=== PATIENT | female | born 1935 | race Caucasian/White ===

== ENCOUNTER → 2017-02-06 | Outpatient (CLI) | payer MEDICARE ==
[~2017-02-06] MED LIST: AMOXIL500 MG PO; ASPIR 8181 MG PO; ATIVAN1 MG PO; CELEXA10 MG PO; CELEXA20 MG PO; CIPRO500 MG; CRESTOR20 MG PO; CRESTOR5 MG PO; FLEXERIL10 MG PO; IBU800 MG PO; LEVAQUIN750 M1 PO; LEVOTHYROXINE0.05 MG PO; MEDROL DOSEPAK4 MG PO; NEXIUM40 MG PO; OXYGEN NAS; PERCOCET 325 MG1 TA2 PO; PERCOCET 325 MG1 TAB PO; PREDNISONE10 MG PO; PREVACID15 MG PO; PROAIR HFA8.5 GM INH; PROTONIX40 MG PO; SPIRIVA -- 3018 MCG INH; SPIRIVA18 MCG PO; Synthroid,Levo50 MCG PO; VASOTEC10 MG PO; VICODIN ES 7501 TAB PO; ZOCOR80 MG PO; ZOFRAN ODT4 MG SL; Zofran4 MG PO; [UNRECOGNIZED DRUG - OTHER] PO
[2017-02-07 14:07] LABS: ACID FAST SPEC PROCESSING Concentration (.)
== END | disposition home or self-care (01) ==
LOC: RAD 15:39
PROVIDERS: Internal Medicine Critical Care Medicine
DX: R05 Cough (principal)

== ENCOUNTER 2017-02-21 11:12 | Inpatient (IN) | payer MEDICARE ==
[~2017-02-21] VITALS: Ht 162.5 cm; Wt 63.1 kg
--- NOTE | ~2017-02-21 | WRIGHTHP ---
[place], [place] PATIENT HISTORY AND PHYSICAL EXAM NAME: JAMES ANDRADE UNIT #: [id number] ROOM: [place] [address] DOCTOR: RUPAL LAMBERT MD BIRTHDATE: [birth year] DOS: 02/21/2017 HISTORY OF PRESENT ILLNESS: The patient is a 81-year-old female with a past medical history of: 1. Right lower lung mass. 2. COPD. 3. Severe protein calorie malnutrition. 4. Mixed hyperlipidemia. 5. Generalized anxiety disorder. 6. Gastroesophageal reflux disease and esophagitis. 7. Hypothyroidism. 8. Major depression, recurrent. 9. Benign essential hypertension. 10. Previous history of nicotine smoke dependence. The patient presented to the Emergency Department and was seen for complaints of abdominal pains and a CAT scan of the abdomen was performed and she was suspected to have severe constipation and recommended for admission and further management to the fifth floor. After admission, the patient appears to be in mild to moderate distress. She has abdominal distention and complains of pain in her abdomen and has sinus tachycardia with the heart rate going up to 140 beats per minute with temperature of 100.5 degrees Fahrenheit. The patient is being transferred to ICU for close monitoring for sepsis, possibly of abdominal origin or patient can even have pneumonia. She has a lung mass. The patient is unable to provide a good history, but she is following basic commands. REVIEW OF SYSTEMS: LUNGS: No increasing shortness of breath. GASTROINTESTINAL: Complains of abdominal pains. CARDIOVASCULAR SYSTEM: No complaint of chest pains, but she is tachycardic. FAMILY HISTORY: Noncontributory. HOME MEDICATIONS: The patient was taking escitalopram, Protonix, Breo inhaler at home. ALLERGIES: KNOWN ALLERGIES TO MEPERIDINE. SOCIAL HISTORY: Denies smoking cigarettes with previous history of nicotine abuse. Denies any alcohol or drug abuse. PHYSICAL EXAMINATION: GENERAL: Awake, alert, follows basic commands, unable to provide much history, appears to be quite uncomfortable with abdominal pains. CARDIOVASCULAR SYSTEM: Heart rate is regular in rate and rhythm and tachycardic, heart rate around 130 beats per minute. ABDOMEN: Distended, generally tender. No rigidity, guarding or rebound tenderness. No obvious organomegaly. Bowel sounds are increased. EXTREMITIES: Without significant cyanosis or edema. CENTRAL NERVOUS SYSTEM: The patient unable to provide much history. She is [place], [place] PATIENT HISTORY AND PHYSICAL EXAM NAME: JAMES ANDRADE UNIT #: [id number] ROOM: [place] [address] DOCTOR: RUPAL LAMBERT MD BIRTHDATE: [birth year] able to move all extremities. LABORATORY DATA: CBC is normal except for left shift with 87% neutrophils on differential count. Troponin I level was normal. Lactic acid level elevated to 5.2, then 4.4 and now at 2.9. CT of the abdomen and pelvis could not rule out a mass, but it showed increased fecal matter and distention of the right colon, distended fluid filled esophagus. IMPRESSION: The patient with history of lung mass again showing up on chest x-ray in the right lower lobe, concern is about malignancy and also pneumonia. The patient is being started on antibiotics and Dr. Nunez, her hot tar roofer has been consulted on an urgent basis and the patient is being moved to ICU. 1. Sepsis with tachycardia and fever up to 100.5 degrees Fahrenheit with acute abdominal pains and tachycardia with heart rates going up to 140 beats per minute and elevated lactic acid level to 5.2. The patient was started on hydration with normal saline and was started on cefepime. The patient was given Rocephin in the Emergency Department. No signs of urine infection on urinalysis in the Emergency Department. 2. Possible bowel obstruction or even bowel tumor and constipation, for which I am consulting Dr. Dominguez with surgeon on an urgent basis and treat her with antibiotics. Follow her blood counts daily and serum electrolytes. The patient also had distended fluid filled esophagus. The patient is being kept n.p.o. 3. The patient will be monitored closely in the ICU and hot tar roofer, Dr. Nunez and general surgeon, Dr. Dominguez have been consulted. RUPAL LAMBERT MD CM:HISPHYS:PATIENT HISTORY AND PHYSICAL EXAMINATION 24 42 RUPAL LAMBERT MD 02/21/171942 interface
--- NOTE | ~2017-02-21 | PR ---
[place], [place] PROGRESS NOTE NAME: [facility] [id number] UNIT #: [id number] ROOM: [place] [address] DOCTOR: RUPAL LAMBERT MD BIRTHDATE: [birth year] DOS: 02/22/2017 SUBJECTIVE: The patient dropped her blood pressure early this morning in the ICU and required resuscitation, which was followed by intubation and mechanical ventilation. The patient was put on dopamine and dobutamine and continued on hydration with normal saline. The patient's blood pressures improved, but since her resuscitation, she has dilated pupils and is unresponsive. Dr. Nunez, beverage specialist and car bracer has been on consult and Dr. Dominguez, the surgeon, and mask designer, Dr. Reese and Infectious Disease specialists have been consulted. The patient is being kept on antibiotics. Rocephin was given in the Emergency Department prior to admission. Following this, patient was put on cefepime and now she is on vancomycin, Zosyn and Flagyl intravenously. She is intubated and on mechanical ventilation. PHYSICAL EXAMINATION: VITAL SIGNS: Blood pressure 84/45, going all the way up to 130 systolic over 50 diastolic, heart rate of 128 beats per minute, breathing 12 times per minute, temperature 98 degrees Fahrenheit, going up to 101.2 degrees Fahrenheit rectal. HEENT AND NECK: Reveals pupils are dilated, nonreactive to light. The patient is completely unresponsive, intubated and on mechanical ventilation. The patient has not been getting any sedation after she received Dilaudid last night. CARDIOVASCULAR SYSTEM: Heart rate is regular in rate and rhythm. S1, S2 audible. LUNGS: Clear to auscultation. ABDOMEN: Decreased bowel sounds. EXTREMITIES: Without significant cyanosis or edema. CENTRAL NERVOUS SYSTEM: The patient is completely unresponsive. Pupils are dilated and not responding to light. She was intubated and on mechanical ventilation and not sedated. LABORATORY DATA: Urine cultures are negative. BUN and creatinine 76 and 2.5, hemoglobin 10, platelets are low at 74,000, neutrophils 16%, lymphocytes 60%, white cell count of 600. IMPRESSION: 1. 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 The patient's family and her daughters have decided to keep her on comfort care now and an Ethics Committee consult is being obtained regarding end of life regulations in the [employer]. Case was discussed in great detail with family and Dr. Nunez. 2. The patient on examination is terminal and irreversible. 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 Vieira, the ER physician. 3. Neutropenic fever and sepsis, being followed by ID specialist. The patient's latest antibiotics are Zyvox and cefepime. 4. Hypothyroidism, treated with levothyroxine. 5. The patient remains in the ICU. She is being turned every 2 hours and we are using an air mattress. [place], [place] PROGRESS NOTE NAME: JAMES ANDRADE UNIT #: [id number] ROOM: [place] [address] DOCTOR: RUPAL LAMBERT MD BIRTHDATE: [birth year] 6. Severe constipation and abdominal distention. The patient has NG tube in place and on intermittent suctioning. Her bowels are not working. RUPAL LAMBERT MD CM:PNTRANS [id number] RUPAL LAMBERT MD 02/22/17 1402 interface
--- NOTE | ~2017-02-21 | CON ---
[place], [place] REPORT OF CONSULTATION NAME: JAMES ANDRADE UNIT #: [id number] ROOM: [place] [address] DOCTOR: LIYAH OSBORNE MD BIRTHDATE: [birth year] DOS: 02/22/2017 REQUESTING PHYSICIAN: Dr. Lu, which was completed on 02/22/2017. HISTORY OF PRESENT ILLNESS: A 81-year-old white female who has been known to me from the past. The patient has been known with history of COPD with chronic hypoxic respiratory failure and also diagnosed with metastatic lung cancer, nonsmall cell. The patient has been started on chemotherapy per Dr. Connors in [facility] in [place], [place]. The patient has been given the chemotherapy. The patient presented to the Emergency Room from date of 02/21/2017. The patient has been reported symptoms of excessive nausea, vomiting and emesis. The patient's symptoms have been noted gradually worsen. She was noted with severe leukopenia. The patient later on developed severe hypertension as well and noted with signs a severe septic shock. The patient has been started with vasopressors, was given IV fluid resuscitation and also noted with hypoglycemia. The patient has been currently noted on mechanical ventilator at the present time for this patient receiving 2 different vasopressors for this patient and noted with severe lactic acidosis. The patient has been noted unconscious, does not respond to the vocal commands. She has been resuscitated because of the unresponsiveness, on this hospitalization, this morning as well. The patient has been currently intubated and started on mechanical ventilator. The patient has not been noted symptoms of hemoptysis or coughing as per family members. She has been reported some symptoms of shortness of breath. REVIEW OF SYSTEMS: Review of systems could not be completed since the patient is noted intubated and mechanical ventilation. PAST MEDICAL HISTORY: 1. Noted with history of nonsmall cell lung cancer metastatic to the lymph nodes as well as in the left lower lobe, currently treated with chemotherapy. 2. History of centrilobular emphysema. 3. Uncomplicated moderate persistent bronchial asthma and acute chronic hypoxic respiratory failure. 4. Hypercholesterolemia. 5. Anxiety disorder and depression. 6. Gastroesophageal reflux. 7. Essential hypertension. PAST SURGICAL HISTORY: 1. Surgery of the urinary bladder. 2. Cholecystectomy. 3. Hysterectomy. 4. Carotid endarterectomy. 5. Fiberoptic bronchoscopy 10/[address]-guided ____ biopsy of the right lower lobe mass for this patient that was done for the patient on 12/24/2016. SOCIAL HISTORY: The patient is currently and lives at home. She has been noted with tobacco use since age of [age] years old, 1.5 packs of cigarettes per day until 2000. She has also worked in the ____ for 28 years. [place], [place] REPORT OF CONSULTATION NAME: JAMES ANDRADE UNIT #: [id number] ROOM: [place] [address] DOCTOR: LIYAH OSBORNE MD BIRTHDATE: [birth year] FAMILY HISTORY: The patient was reported as father at age 3131 years old in [place]. The mother at 69 years old, complication of heart problems. MEDICATIONS: Current administered medications noted use of norepinephrine, dopamine, citalopram, vancomycin, Levaquin, cefepime and other p.r.n. medications administration. She is also getting intravenous fluids 150 mL an hour. DRUG ALLERGIES: NOTED ALLERGY TO ____. PHYSICAL EXAMINATION: GENERAL: This is a 81-year-old white female noted unconscious with height of 5 feet 4 inches, the patient weight of 139 pounds, BMI 23.8. VITAL SIGNS: For the patient recorded temperature noted at 101.2 degrees Fahrenheit to normal temperature, respiratory rate noted at 20-29. Heart rate of 120-125 with sinus tachycardia, blood pressure ____. The patient at that time of resuscitation this morning was noted ____ and current blood pressure noted as ____. Intake for the patient recorded as 3100 mL, the output was 675 mL. Pulse oxygen saturation noted as 100% on current supplementation of oxygen. Previous noted as 76% prior to the intubation and mechanical ventilation during the code. HEENT: Noted, the patient is currently intubated, orogastric tube is in place. NECK: Supple. CARDIOVASCULAR: S1, S2 is audible. LUNGS: The patient was noted without any wheezing or crackles. Breaths are noted mildly decreased bilaterally. ABDOMEN: Soft, absent bowel sounds. EXTREMITIES: The patient showed no edema. SKIN: Overlying skin visible shows no abnormalities. MUSCULOSKELETAL: No gross deformities. CENTRAL NERVOUS: Deeply comatose status. LABORATORY DATA: CMP of patient on 02/21/2017 showed glucose 217, BUN 54, creatinine 1.55, sodium 133. Lipase was normal. CBC of the patient on 02/21/2017 was noted as normal CBC. Lactic acid 5.2, later on noted at 4.4 and 2.9 as the lowest noted yesterday afternoon. The BMP for the patient that was done this morning for this patient shows BUN 75, creatinine 2.37 with CO2 of 12. Arterial blood gas, pH of 7.07, pCO2 of 35, pO2 192 at the time of the ____. CBC this morning, WBC count 1.1, hemoglobin and hematocrit were normal. The platelet count for this patient was noted as 104,000, which was mildly decreased. The lactic acid noted as 16.0 twice. The CMP repeated again this morning after the course shows glucose of 22, BUN 76, creatinine 2.59. CO2 of 17 at that time. Urine culture showed no bacterial growth. Preliminary findings culture results were pending. The chest x-ray this morning, the patient is with intubation. The patient noted endotracheal tube were in appropriate position. Mass lesions were noted in the right mid lung for the patient with acute infiltration in the right lower lobe. A CT scan of the chest, abdomen and pelvis, which were done yesterday upon admission. Findings were reviewed and the CT scan of the chest was reviewed. CT scan of the chest [place], [place] REPORT OF CONSULTATION NAME: JAMES ANDRADE UNIT #: [id number] ROOM: [place] [address] DOCTOR: BUCK SPRINGER MD,LIYAH BIRTHDATE: [birth year] shows evidence of previously noted right lower lobe mass for this patient and previously with distention of fluid filled esophagus. ____ possibility of underlying esophageal stricture versus ____ was described. Dilatation of the cecum. The patient was also described with a large amount of stool in the colon. There was no free air described for the patient by the radiologist report. IMPRESSION: 1. The patient who has been admitted to the hospital noted with severe acute sepsis with septic shock, multiorgan system failure including acute kidney injury for the patient as well as severe hypotension and hypoglycemia. 2. Immunosuppression. The patient was also noted because the chemotherapy administration and worsened because of the sepsis as well with WBC count was noted initially 0.6. 1.1 this morning and later on noted as 0.6 and WBC count were noted normal. Acute ____ suppression patient would be also added ____ will be resulting because of the current acute sepsis. 3. Severe lactic acidosis, multifactorial including from the ____ to the body and acute sepsis was also noted. 4. Unconscious status secondary multiorgan system failure. 5. History of known metastatic nonsmall cell lung cancer as well. PLAN OF TREATMENT: Currently, the patient's condition has been noted ____. In my opinion as the family members wishing the patient to be removed from mechanical ventilator and to be kept comfortable. The daughters of this patient said explicitly that the patient has discussed the code status. The patient's advanced directive that she does not wish to be continued on the mechanical ventilation for the life support in case of terminal and irreversible status. ____ who is the primary care attending of this patient to primary care physician has determined the same. ASSESSMENT: I concurred with her assessment as well. However, the matter is since there has not been any written documentation, ____ only verbal discussion has been noted. The case will be discussed from the ethics committee with committee members as well. If agreeable the patient could be terminally removed from mechanical ventilator the patient ____ weaning to be done. If the patient does get ____ weaning for the patient. She will be started on morphine and other medication as necessary only for comfort. The patient's prognosis is noted, great at the present time. Severe hypoglycemia for this patient most likely related to acute sepsis in the management component. The patient at the end noted that patient's blood glucose has been checked for the last 2 hours noted greater than 100 after the hypoglycemia that has been already managed. The patient with suppressive therapy has been gradually reduced as improvement noted in the hypotension, patient titration has been noted in progress. Total time pulmonary critical care evaluation and management on today's assessment and management is 40 minutes. [place], [place] REPORT OF CONSULTATION NAME: JAMES ANDRADE UNIT #: [id number] ROOM: [place] [address] DOCTOR: CHINO OSBORNE MDM BIRTHDATE: [birth year] LIYAH JANE MD CM:CONSTR:REPORT OF CONSULTATION 1350 02/22/17 1656 interface
--- NOTE | ~2017-02-21 | CON ---
[place], [place] REPORT OF CONSULTATION NAME: JAMES ANDRADE UNIT #: [id number] ROOM: [place] [address] DOCTOR: KIMBER CAMPBELL,AMANDO BIRTHDATE: [birth year] DOS: 02/22/2017 At 0540 hours this morning, I was asked to evaluate this patient who had a sudden onset of respiratory arrest with an associated rapid bradycardia to asystole. She was originally admitted to the hospital one day ago for what was thought to be a partial bowel obstruction. The nurses reported that she had been tachycardic overnight maintaining a blood pressure between 90 and 100. She was given Dilaudid at 3:00 a.m. this morning and that did offer her some relief; however, the tachycardia persisted. She was receiving supplemental O2. As noted above, she rapidly declined from an apnea to a bradycardia and then no palpable pulses. When I arrived, the nurse was bagging the patient with a bag valve mask with the chin up and the patient was slightly cyanotic. Skin was warm and dry. She had acrocyanosis, but no muffling. She does have a reported history of carcinoma of the lung. No other information is available. Her skin is pale. On examination unresponsive, skin is pale. No palpable pulses and no spontaneous respirations. With hand ventilation, breath sounds bilaterally were within normal limits. No cardiac tones are heard. Cardiac massage was in progress and the central pulses at the femoral region were palpated. The abdomen was distended and somewhat firm, but there was no ecchymosis or cyanosis of the abdomen. The extremities were without edema and as noted, no pulses in the legs during the compressions. Pupils were dilated. I recommended intubation immediately and this was done without any sedated agent because the patient was unresponsive with direct laryngoscopy, the cords were visualized. There was a minimal amount of blood in the posterior hypopharynx, but no blood in the airway. The tube was passed without difficulty through the cords secured in position and cuff inflated. Equal air entry bilaterally and no air heard over the epigastrium and CO2 was positive and there was mist in the tube. Ventilation continued through the ET tube. She received multiple medications and subsequently we have a return in pulse and blood pressure. The blood pressure was improved after dopamine, but there were no spontaneous respirations. Her blood pressure was 150/80 with dopamine and the dose on the dopamine was reduced gradually from 20 to 10 and then to 5. Blood pressure was maintained at 110/68 at 5 mcg per kilogram. Chest x-ray, which was interpreted by me showed a normal bony thorax, normal mediastinum, moderate heart size, infiltrate in the right lower lobe, which may be the mass that the nurses were telling me about. Tube was in good position. 12-lead EKG, which was interpreted by me showed a sinus tachycardia with a heart rate of 128 beats per minute. There were T-wave changes in all leads, but no ST elevation and no conduction problems and no old EKG was available to me at the time of the interpretation. I did speak with Dr. uL, advised him of the patient's status; however, some concern that the patient was indeed septic and recommended 1 liter of saline wide open. Ventilator settings were assist control of 12, tidal volume 500, PEEP 5 cm and FiO2 1.0, which is 100%. Repeat blood gases will be done in 15 minutes. I also recommended a CBC, basic chemistry, lactic acid x 2. After speaking with Dr. Lu, he requested that I consult with Infectious Disease and the patient's care was transferred back to Dr. Lu. The patient's condition is critical. [place], [place] REPORT OF CONSULTATION NAME: JAMES ANDRADE UNIT #: [id number] ROOM: [place] [address] DOCTOR: AMANDO QUIROGA MD BIRTHDATE: [birth year] AMANDO QUIROGA MD CM:CONSTR:REPORT OF CONSULTATION 1817 02/23/17 0504 interface
--- NOTE | ~2017-02-21 | CON ---
[place], [place] REPORT OF CONSULTATION NAME: JAMES ANDRADE UNIT #: [id number] ROOM: [place] [address] DOCTOR: ARLINE BENOIT [facility] BIRTH[facility]: [birth year] DOS: GASTROENDOSCOPIC CONSULTATION HISTORY OF PRESENT ILLNESS: A 81-year-old patient who has presented with some episode of dysphagia and concerned about that that I have been consulted for. However, the patient known with metastatic disease and the patient with lung mass. The patient rested on the floor, the patient had to be transferred to ICU, was found to have lactic acid of greater than 16 with elevated BUN and creatinine to 54 and 1.55. The troponin was negative; however, at that time, her H and H was 14 and 45, white blood cell was 6.2. The patient became unresponsive, transferred to ICU and the family is making decision regarding DNR and care now. PAST MEDICAL HISTORY: Associated with depression, anxiety, lung CA, tachycardia, unresponsiveness, respiratory arrest at the present time. PAST SURGICAL HISTORY: Hysterectomy, cholecystectomy, carotid endarterectomy, bladder surgery. SOCIAL HISTORY: Passive smoker and nonalcohol consumer. FAMILY HISTORY: Noncontributory. ALLERGIES: TO MEPERIDINE. MEDICATIONS: Medication list has been reviewed. REVIEW OF SYSTEMS: Cannot be obtained from her due to intubation status and unresponsiveness. VITAL SIGNS: Hypotensive, intubated. HEENT: Pupils are fixed. Unresponsive. Mouth occupied with intubation device. LUNGS: Respiratory rhonchi. HEART: Tachycardic. ABDOMEN: Soft. No hepato-organomegaly. EXTREMITIES: No cyanosis, no pedal edema. NEUROLOGIC: Unresponsive. IMPRESSION: End stage lung carcinoma, respiratory arrest, intubation. Other adjunctive diagnoses as outlined in the paragraph of past medical and surgical history. Multiple family members are present at the bedside, they are making decision for terminal wean. Labs and records have been reviewed. White blood cell 0.6. Lactic acid greater than 16, platelet count 74. Records have been reviewed. I agree with terminal wean in the patient with lung carcinoma, metastasis, and end stage. Family essentially has coordinated visitation at the bedside and they are saying goodbye to her, and we are waiting for other physicians' comments regarding a terminal wean. [place], [place] REPORT OF CONSULTATION NAME: JAMES ANDRADE UNIT #: [id number] ROOM: [place] [address] DOCTOR: KAYCEE CAMPBELL,STEPHANIA BIRTHDATE: [birth year] STEPHANIA BENOIT MD CM:CONSTR:REPORT OF CONSULTATION 1335 02/22/17 1458 interface
[2017-02-21 11:22] VITALS: BP 116/70
[2017-02-21 11:51] LABS: HEMATOCRIT 45.8 % (37.0-47.0); HEMOGLOBIN 14.8 g/dl (12.0-16.0); MEAN CORPUSCULAR HGB 29.7 pg (27.0-31.0); MEAN CORPUSCULAR HGB CONC 32.3 g/dl (33.0-37.0); MEAN PLATELET VOLUME 10.8 fl (9.6-12.3); PLATELET COUNT AUTOMATED 196 10*3/uL (130-400); RED BLOOD COUNT 4.98 10*6/uL (4.10-5.10); RED CELL DISTRI WIDTH 14.3 % (0-14.5); WHITE BLOOD COUNT 6.2 10*3/uL (4.8-10.8)
[2017-02-21 12:05] LABS: ALBUMIN 3.1 gm/dl (3.1-4.5); BILIRUBIN, TOTAL 1.2 mg/dl (0.2-1.0); POTASSIUM 4.8 mmol/L (3.5-5.1); TOTAL PROTEIN 7.8 gm/dL (6.4-8.2)
[2017-02-21 12:08] LABS: EOSINOPHIL # 0.1 10*3/uL (0-0.4); EOSINOPHILS 1 % (1-4); LYMPHOCYTE # 0.5 10*3/uL (1.3-4.4); MONOCYTE # 0.2 10*3/uL (0.1-1.0); NEUTROPHIL # 5.4 10*3/uL (2.3-7.9); NEUTROPHILS 87 % (47-73); TOTAL CELLS COUNTED 100 #CELLS
[2017-02-21 12:09] LABS: PLATELET SUFFICIENCY NORMAL (NORMAL); TOXIC GRANULATION SLIGHT; VACUOLATION OF NEUTROPHILS SLIGHT
[2017-02-21] MEDS ORDERED: OMNICEF300 MG PO (12:18)
[2017-02-21] MEDS ORDERED: ROBITUSSIN AC 110 ML PO (12:18)
[2017-02-21 13:48] LABS: LA>2 REFLEX 2 HR DRAW NOW
[2017-02-21 14:39] LABS: LA>2 RFLX FOLLOW UP AT 2 HRS 4.4 mmol/L (0.4-2.0)
[2017-02-21 15:17] LABS: BILIRUBIN 2+ (NEGATIVE); BLOOD NEGATIVE (NEGATIVE); CLARITY SL CLOUDY (CLEAR); COLOR YELLOW (YELLOW); GLUCOSE NEGATIVE (NEGATIVE); KETONE 1+ (NEGATIVE); LEUKO ESTERASE TRACE (NEGATIVE); NITRITE POSITIVE (NEGATIVE); PROTEIN 1+ (NEGATIVE); SPECIFIC GRAVITY >= 1.030 (1.005-1.030)
[2017-02-21 15:33] LABS: MUCOUS TRACE; RBC 0-2 rbc/hpf (0-2)
[2017-02-21 15:34] LABS: URINE REFLEX COMMENT YES (NO)
[2017-02-21 16:11] LABS: LA>2 REFLEX 4 HR DRAW NOW
[2017-02-21] MEDS ORDERED: COMPAZINE5 M3 PO (17:25)
[2017-02-21] MEDS ORDERED: BREO ELLIPTA 11 EACH IH (17:26)
[2017-02-21] MEDS ORDERED: ZOFRAN8 M1 PO (17:26)
[2017-02-21] MEDS ORDERED: AUGMENTIN 875-875 MG PO (17:27)
[2017-02-21 17:38] VITALS: BP 106/67
[2017-02-21 18:25] VITALS: BP 130/72
[2017-02-21 20:00] VITALS: BP 124/73
[2017-02-22] VITALS (25 sets, daily range): BP systolic 60–167; BP diastolic 0–116
[2017-02-22 06:03] LABS: HEMATOCRIT 40.9 % (37.0-47.0); MEAN CORPUSCULAR HGB 29.8 pg (27.0-31.0); MEAN CORPUSCULAR HGB CONC 30.1 g/dl (33.0-37.0); MEAN PLATELET VOLUME 11.4 fl (9.6-12.3); RED BLOOD COUNT 4.13 10*6/uL (4.10-5.10); RED CELL DISTRI WIDTH 14.6 % (0-14.5)
[2017-02-22 06:09] LABS: POTASSIUM 4.8 mmol/L (3.5-5.1)
[2017-02-22 06:13] LABS: HEMOGLOBIN 12.3 g/dl (12.0-16.0); PLATELET COUNT AUTOMATED 104 10*3/uL (130-400)
[2017-02-22 06:20] LABS: ABG CO2 CONTENT 10.9 mmol/L (23-27); ABG HCO3 9.8 mmol/l (22-26); ABG TEMPERATURE 98.5 F (98.0-99.0)
[2017-02-22 06:23] LABS: BURR CELLS MANY; LYMPHOCYTE # 0.5 10*3/uL (1.3-4.4); METAMYELOCYTES 2 % (0-0); MONOCYTE # 0.3 10*3/uL (0.1-1.0); MYELOCYTES 4 % (0-0); NEUTROPHIL # 0.3 10*3/uL (2.3-7.9); NEUTROPHILS 26 % (47-73); PLATELET SUFFICIENCY LOW (NORMAL); TOTAL CELLS COUNTED 50 #CELLS; TOXIC GRANULATION MODERATE; VACUOLATION OF NEUTROPHILS SLIGHT
[2017-02-22 06:24] LABS: ABG BASE EXCESS -19.4 mmol/L (-2.0-2.0)
[2017-02-22 06:25] LABS: ARTERIAL BLOOD GAS PH 7.073 (7.35-7.45)
[2017-02-22 06:25] LABS: WHITE BLOOD COUNT 1.1 10*3/uL (4.8-10.8)
[2017-02-22 06:58] LABS: MEAN CELL VOLUME 98.2 fl (81.0-99.0); MEAN CORPUSCULAR HGB 29.4 pg (27.0-31.0); MEAN CORPUSCULAR HGB CONC 29.9 g/dl (33.0-37.0); MEAN PLATELET VOLUME 11.4 fl (9.6-12.3); PLATELET COUNT AUTOMATED 74 10*3/uL (130-400); RED CELL DISTRI WIDTH 14.6 % (0-14.5)
[2017-02-22 07:09] LABS: POTASSIUM 5.1 mmol/L (3.5-5.1)
[2017-02-22 07:12] LABS: HEMATOCRIT 33.4 % (37.0-47.0)
[2017-02-22 07:19] LABS: ATYPICAL LYMPHS 4 % (0-0); LYMPHOCYTE # 0.4 10*3/uL (1.3-4.4); METAMYELOCYTES 4 % (0-0); MONOCYTE # 0.1 10*3/uL (0.1-1.0); NEUTROPHIL # 0.1 10*3/uL (2.3-7.9); NEUTROPHILS 16 % (47-73); TOTAL CELLS COUNTED 25 #CELLS
[2017-02-22 07:20] LABS: BURR CELLS MANY; PLATELET SUFFICIENCY LOW (NORMAL); TOXIC GRANULATION SLIGHT
[2017-02-22 07:21] LABS: WHITE BLOOD COUNT 0.6 10*3/uL (4.8-10.8)
[2017-02-22 08:49] LABS: LA>2 REFLEX 2 HR DRAW NOW
[2017-02-22 11:08] LABS: LA>2 REFLEX 4 HR DRAW NOW
== END 2017-02-22 16:39 | disposition expired | DRG 871 ==
LOC: ED 11:12 → EDHOLD 15:37 → 5E 15:58 → ICCU 18:22
PROVIDERS: Emergency Medicine Emergency Medical Services; Internal Medicine; Nurse Practitioner Family
PROC: 5A1935Z Respiratory Ventilation, Less than 24 Consecutive Hours (ICD-10-PCS; principal; 2017-02-21)
PROC: 0BH17EZ Insertion of Endotracheal Airway into Trachea, Via Natural or Artificial Opening (ICD-10-PCS; principal; 2017-02-21)
DX: A41.9 Sepsis, unspecified organism (principal); R65.21 Severe sepsis with septic shock; J96.21 Acute and chronic respiratory failure with hypoxia; N17.9 Acute kidney failure, unspecified; K56.60 Unspecified intestinal obstruction; C34.31 Malignant neoplasm of lower lobe, right bronchus or lung; C77.9 Secondary and unspecified malignant neoplasm of lymph node, unspecified; C78.02 Secondary malignant neoplasm of left lung; F33.9 Major depressive disorder, recurrent, unspecified; J44.9 Chronic obstructive pulmonary disease, unspecified; K21.9 Gastro-esophageal reflux disease without esophagitis; F41.1 Generalized anxiety disorder; E78.2 Mixed hyperlipidemia; E03.9 Hypothyroidism, unspecified; K59.00 Constipation, unspecified; E78.00 Pure hypercholesterolemia, unspecified; J45.40 Moderate persistent asthma, uncomplicated; E16.2 Hypoglycemia, unspecified; R09.2 Respiratory arrest; I10 Essential (primary) hypertension; Z87.891 Personal history of nicotine dependence; Z90.710 Acquired absence of both cervix and uterus; Z90.49 Acquired absence of other specified parts of digestive tract; Z92.21 Personal history of antineoplastic chemotherapy; Z88.8 Allergy status to other drugs, medicaments and biological substances; Z82.3 Family history of stroke; Z82.49 Family history of ischemic heart disease and other diseases of the circulatory system